=== PATIENT | female | born 1960 | race Two or more races ===

== ENCOUNTER 2017-04-19 19:31 | Emergency (ER) | payer MEDICAID ==
[~2017-04-19] VITALS: Ht 152.4 cm; Wt 74.0 kg
[2017-04-19] MEDS ORDERED: ONDANSETRON 4MG ODT PO STA (21:24)
[2017-04-19] MEDS ORDERED: ACETAMINOPHEN 325MG TABLET PO ONE (21:30)
[2017-04-19] MEDS ORDERED: LORAZEPAM 0.5MG TABLET PO ONE (21:30)
[2017-04-19 22:08] LABS: BASOPHILS % 0.4 % (0.0-2.0); EOSINOPHILS % 1.1 % (0.0-5.0); HEMATOCRIT. 46.5 % (36.0-48.0); HEMOGLOBIN. 16.3 g/dL (12.0-16.0); LYMPHOCYTES % 29.7 % (20.0-50.0); MEAN CORPUSCULAR HEMOGLOBIN 31.4 pg (28.0-32.0); MEAN CORPUSCULAR VOLUME 89.7 fL (81.0-99.0); MEAN PLATELET VOLUME 9.8 fl (7.4-10.4); MONOCYTES % 4.9 % (2.0-8.0); NEUTROPHILS % 63.9 % (40.0-76.0); PLATELET 183 x1000/uL (130-400); RED BLOOD CELL COUNT 5.18 mill/uL (4.2-5.4)
[2017-04-19 22:13] LABS: CHLORIDE 99 mEq/L (98-107)
[2017-04-19 22:20] LABS: CARBON DIOXIDE 29 mEq/L (21-32)
[2017-04-19 22:50] LABS: CLARITY URINE CLEAR (CLEAR); COLOR URINE YELLOW (YELLOW); GLUCOSE URINE NEGATIVE (NEGATIVE); KETONES URINE NEGATIVE (NEGATIVE); LEUKOCYTE ESTERASE URINE TRACE (NEGATIVE); NITRITE URINE NEGATIVE (NEGATIVE); OCCULT BLOOD URINE NEGATIVE (NEGATIVE); PROTEIN URINE NEGATIVE (NEGATIVE); SPECIFIC GRAVITY URINE 1.005 (1.005-1.030); UROBILINOGEN URINE 0.2 E.U./dL (0.2-1.0)
[2017-04-19 23:09] VITALS: BP 107/59
== END 2017-04-20 02:10 | disposition home or self-care (01) ==
LOC: ER 19:31
DX: R51 Headache (principal); R42 Dizziness and giddiness; R11.0 Nausea; E05.90 Thyrotoxicosis, unspecified without thyrotoxic crisis or storm; F17.210 Nicotine dependence, cigarettes, uncomplicated; M79.1 Myalgia; I10 Essential (primary) hypertension; F41.9 Anxiety disorder, unspecified
CPT/HCPCS: 36415; 80053; 81001; 85025; 93005; 99285; Q0162

== ENCOUNTER 2017-04-20 13:27 | Emergency (ER) | payer MEDICAID ==
[~2017-04-20] VITALS: Ht 160 cm; Wt 73.0 kg
[2017-04-20 14:05] VITALS: BP 131/68
== END 2017-04-20 15:52 | disposition home or self-care (01) ==
LOC: ER 13:48
DX: Z76.0 Encounter for issue of repeat prescription (principal); F41.9 Anxiety disorder, unspecified; I10 Essential (primary) hypertension; E05.90 Thyrotoxicosis, unspecified without thyrotoxic crisis or storm; F17.200 Nicotine dependence, unspecified, uncomplicated
CPT/HCPCS: 99283